=== PATIENT | female | born 1935 ===

== ENCOUNTER → 2019-03-23 20:29 | Outpatient (CLI) | payer MEDICARE | END | disposition home or self-care (01) | LOC: D.LABREF 20:29 | PROVIDERS: ATTEND Orthopaedic Surgery | DX: N18.9 Chronic kidney disease, unspecified (principal) ==

== ENCOUNTER → 2019-03-26 16:20 | Outpatient (CLI) | payer MEDICARE | END | disposition home or self-care (01) | LOC: D.LABREF 16:20 | DX: N39.0 Urinary tract infection, site not specified (principal) ==